=== PATIENT | female | born 1990 | race Caucasian/White ===

== ENCOUNTER 2023-02-24 18:04 | Outpatient (REF) | payer OTHER, SELFPAY ==
[2023-02-24 21:25] LABS: Anion Gap 11.5 mmol/L (3-11); BUN 12 mg/dL (7-18); CO2 23.5 mmol/L (21.0-32.0); CREATININE 0.7 mg/dL (0.55-1.02); Calcium 9.1 mg/dL (8.5-10.1); Chloride 103 mmol/L (98-107); Estimated GFR 117.04 (mL/min/1.73m2); Glucose 90 mg/dL (74-106); Potassium 3.9 mmol/L (3.5-5.1); Sodium 138 mmol/L (136-145)
== END 2023-02-24 18:05 | disposition home or self-care (01) ==
LOC: NCHCN 18:04
PROVIDERS: Visit Provider Family Medicine
DX: Z00.00 Encounter for general adult medical examination without abnormal findings (principal); E66.9 Obesity, unspecified
CPT/HCPCS: 80048

== ENCOUNTER 2024-01-01 19:03 | Outpatient (REF) | payer OTHER, SELFPAY ==
[2024-01-01 15:25] LABS: HCT 43.3 % (36.0-46.0); HGB 14.2 g/dL (11.2-15.7); MCH 30.3 pg (27.0-33.0); MCHC 32.8 % (32.0-36.0); MCV 93 fL (80-95); MPV 11.8 fL (8.0-11.0); Platelet Count 198 10^3/uL (130-400); RBC 4.68 10^6/uL (3.93-5.22); RDW 13.6 % (11.7-14.6); RDW-SD 46.5 fL; WBC 7.27 10^3/uL (4.4-10.8)
[2024-01-01 15:43] LABS: Iron 99 ug/dL (50-170); Total Iron Binding Capacity 315 ug/dL (250-450); Transferrin Sat 31 % (15-50)
[2024-01-01 15:53] LABS: Anion Gap 9.6 mmol/L (3-11); BUN 10 mg/dL (7-18); CO2 25.4 mmol/L (21.0-32.0); CREATININE 0.7 mg/dL (0.55-1.02); Calcium 9.4 mg/dL (8.5-10.1); Chloride 106 mmol/L (98-107); Estimated GFR 116.31 (mL/min/1.73m2); Glucose 76 mg/dL (74-106); Potassium 4.3 mmol/L (3.5-5.1); Sodium 141 mmol/L (136-145); TSH 0.96 uIU/Ml (0.36-3.74)
[2024-01-01 16:20] LABS: Ferritin 271 ng/mL (8-252); Hemoglobin A1C 5.4 % (<5.7)
== END 2024-01-01 19:04 | disposition home or self-care (01) ==
LOC: NCHCN 19:03
PROVIDERS: PCP Nurse Practitioner Family; Visit Provider Nurse Practitioner Family
DX: E66.9 Obesity, unspecified (principal); R73.03 Prediabetes; G25.81 Restless legs syndrome
CPT/HCPCS: 80048; 85027; 82728; 83036; 83540; 83550; 84443

== ENCOUNTER 2024-07-23 12:11 | Outpatient (REF) | payer OTHER, SELFPAY ==
--- NOTE | 2024-07-23 10:00 | PAPFT_PTH ---
PATIENT: Lucy Santos LOC: [facility] U#:[id number] AGE/SX: 34/F ROOM: RE07/23/[address]: Stefanie Mcgowan : 1990 BED: DIS: 07/23/2024 SPEC #: [id number] RECD: 07/23/24 17:43 STATUS: ADRYAN REHenrik #: [id number] MARTI: 07/23/24 10:[address]: Stefanie Rai DEPT: [facility] Cytology RECD BY: Cheyenne Healy Tissues: 1 - CX/ENDOCX FOR PAP SMEARS Procedures: PAP THIN PREP/[facility] Screening HPV DNA PROBE Comments: [id number] (HPV 16 & 18/45)
== END 2024-07-23 12:12 | disposition home or self-care (01) ==
LOC: NCHCN 12:11
PROVIDERS: PCP Nurse Practitioner Family; Visit Provider Nurse Practitioner Family
DX: Z12.4 Encounter for screening for malignant neoplasm of cervix (principal)
CPT/HCPCS: 88142; 87624